=== PATIENT | male | born 1960 | race Caucasian/White ===

== ENCOUNTER 2018-01-25 04:45 | Emergency (ER) | payer MEDICARE ==
[~2018-01-25] VITALS: Ht 182.9 cm; Wt 170.1 kg
[2018-01-25] MEDS ORDERED: Ketorolac 30mg Inj IM ONE (05:15)
[2018-01-25] MEDS ORDERED: Methocarbamol 750mg tab ORAL ONE (05:15)
[2018-01-25] MEDS ORDERED: ROBAXIN-750750 MG PO (05:55)
[2018-01-25] MEDS ORDERED: IBUPROFEN600 MG ORAL (05:55)
[2018-01-25 08:39] VITALS: BP 116/61
--- NOTE | 2018-01-27 14:19 | Emergency Room Report ---
History of Present Illness General Chief Complaint: Pain Source: Patient Present Illness HPI 57-year-old male presents ED complaining of bilateral leg pain and cramping. Patient is coming from a hotel. Call 911. Patient states cramping started last night. 7 out of 10, throbbing, nonradiating. States he does have history of muscle cramps. States he usually just "waits it out". Denies chest pain or shortness of breath. Denies any leg swelling. Denies fevers or chills. No other aggravating relieving factors. Denies any other associated symptoms Allergies: Coded Allergies: No Known Allergies (Unverified , 01/25/18) Patient History Past Medical History: DM, psych hx Past Surgical History: none Pertinent Family History: none Social History: Denies: smoking, alcohol use, drug use Immunizations: UTD Reviewed Nursing Documentation: PMH: Agreed; PSxH: Agreed Nursing Documentation-PMH Hx Diabetes: Yes History Of Psychiatric Problem: Yes - Bipolar Review of Systems All Other Systems: negative except mentioned in HPI Physical Exam Vital Signs Date Time Temp Pulse Resp B/P (MAP) Pulse Ox O2 Delivery O2 Flow Rate FiO2 01/25/18 04:50 98.6 99 16 153/78 98 Room Air 98.6 Sp02 EP Interpretation: reviewed, normal General Appearance: no apparent distress, alert, GCS 15, non-toxic, obese Head: normocephalic, atraumatic Eyes: bilateral eye normal inspection, bilateral eye PERRL ENT: hearing grossly normal, normal pharynx, no angioedema, normal voice Neck: full range of motion, supple/symm/no masses Respiratory: chest non-tender, lungs clear, normal breath sounds, speaking full sentences Cardiovascular #1: regular rate, rhythm, no edema Cardiovascular #2: 2+ carotid (R), 2+ carotid (L), 2+ radial (R), 2+ radial (L) , 2+ dorsalis pedis (R), 2+ dorsalis pedis (L) Gastrointestinal: normal bowel sounds, non tender, soft, non-distended, no guarding, no rebound Rectal: deferred Genitourinary: normal inspection, no CVA tenderness Musculoskeletal: back normal, gait/station normal, normal range of motion, tender - bilateral legs Neurologic: alert, oriented x3, responsive, motor strength/tone normal, sensory intact, speech normal Psychiatric: judgement/insight normal, memory normal, mood/affect normal, no suicidal/homicidal ideation Reflexes: 3+ bicep (R), 3+ bicep (L), 3+ tricep (R), 3+ tricep (L), 3+ knee (R) , 3+ knee (L) Skin: normal color, no rash, warm/dry, well hydrated Lymphatic: no adenopathy Medical Decision Making Diagnostic Impression: Primary Impression: Muscle cramps ER Course Hospital Course 57-year-old male presents to ED complaining of bilateral leg pain Differential diagnoses include: Fracture, dislocation, sprain, contusion, bursitis Clinical course Patient placed on stretcher. After initial history, physical exam reveals an middle-aged male in no acute distress. On exam there is tenderness to the bilateral calf muscles and bilateral thigh muscles. No swelling. No bruising. Patient appears in no distress. Vital stable. Consistent with muscle cramps as per patient's history. Given Toradol/Robaxin here. Symptoms improved and patient is safe for discharge Diagnosis - muscle cramps stable and discharged to home with prescription for Motrin/robaxin. Followup with PMD. Return to ED if symptoms recur or worsen Last Vital Signs Date Time Temp Pulse Resp B/P (MAP) Pulse Ox O2 Delivery O2 Flow Rate FiO2 01/25/18 08:39 98.4 88 18 116/61 99 Room Air 209.5 Status: improved Disposition: HOME, SELF-CARE Condition: Stable Scripts Methocarbamol* (ROBAXIN-750*) 750 Mg Tablet 750 MG PO TID, #21 TAB 0 Refills Prov: Eligio Raya MD 01/25/18 Ibuprofen* (MOTRIN*) 600 Mg Tablet 600 MG ORAL Q8H PRN for For Pain, #30 TAB 0 Refills Prov: Eligio Raya MD 01/25/18 Patient Instructions: Muscle Cramps and Spasms, [id number] Eligio Raya MD Jan 27, 2018 14:19
== END 2018-01-25 08:34 | disposition home or self-care (01) ==
LOC: EDBD 04:45 → EMR 05:11
DX: R25.2 Cramp and spasm (principal); E11.9 Type 2 diabetes mellitus without complications; F31.9 Bipolar disorder, unspecified
CPT/HCPCS: 96372; 99283; J1885